=== PATIENT | female | born 1955 | race Caucasian/White ===

== ENCOUNTER → 2020-05-05 | Outpatient (CLI) | payer BC ==
[~2020-05-05] VITALS: Ht 157.5 cm; Wt 54.4 kg
== END ==
LOC: OPSV 11:00
DX: M81.0 Age-related osteoporosis without current pathological fracture (principal)
CPT/HCPCS: 96372

== ENCOUNTER → 2020-11-03 | Outpatient (CLI) | payer BC ==
[~2020-11-03] VITALS: Ht 157.5 cm; Wt 54.4 kg
== END ==
LOC: OPSV 11-02 11:00
DX: M81.0 Age-related osteoporosis without current pathological fracture (principal)
CPT/HCPCS: 96372